=== PATIENT | female | born 1995 | race African-American/Black ===

== ENCOUNTER 2022-05-15 12:18 | Emergency (ER) | payer MEDICAID ==
[~2022-05-15] VITALS: Ht 167.6 cm; Wt 89.8 kg
[2022-05-15] MEDS ORDERED: HYDROMORPHONE 1 MG/1 ML DISP.SYRIN ONE (12:33)
[2022-05-15] MEDS ORDERED: ONDANSETRON HCL/PF 4 MG/2 ML VIAL ONE (12:36)
--- NOTE | 2022-05-15 12:41 | NUR ---
Patient came in to the [facility], c/o Left ankle pain s/p tripped and fall. On room air, breathing evenly and unlabored. Connected to the case monitor and pulse ox. Kept comfortable, will continue to monitor accordingly.
[2022-05-15] MEDS ORDERED: HYDROMORPHONE INJ 2 MG/ML DISP.SYRIN IV ONE (13:00)
[2022-05-15] MEDS ORDERED: ONDANSETRON HCL/PF 4 MG/2 ML VIAL IVP ONE (13:00)
[2022-05-15] MEDS ORDERED: IBUP-1957 PO (14:15)
[2022-05-15] MEDS ORDERED: HYDR-3972 PO (14:15)
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
[2022-05-15] MEDS ORDERED: KETOROLAC TROMETHAMINE INJ 30 MG/ML VIAL ONE (14:50)
[2022-05-15] MEDS ORDERED: KETOROLAC TROMETHAMINE INJ 30 MG/ML VIAL IM ONE (15:00)
[2022-05-15 15:18] VITALS: BP 128/77
--- NOTE | 2022-05-15 15:19 | NUR ---
Patient discharged to home in stable condition. Written and verbal after care instructions given. Patient verbalizes understanding of instruction.IV removed. Catheter intact and site benign. Pressure and 4x4 applied to site. No bleeding noted.
--- NOTE | 2022-05-15 15:40 | NUR ---
called [employer] dispatch to file a report. spoke to forging machine operator #[id number]. will send officers.
== END 2022-05-15 15:19 | disposition home or self-care (01) ==
LOC: ER 13:18
DX: S82.842A Displaced bimalleolar fracture of left lower leg, initial encounter for closed fracture (principal); W01.0XXA Fall on same level from slipping, tripping and stumbling without subsequent striking against object, initial encounter; Y93.89 Activity, other specified; Y92.89 Other specified places as the place of occurrence of the external cause; Y99.8 Other external cause status
CPT/HCPCS: 99284; 96374; 29515; 96375; 73610; 73590; J1885; J2405; J1170